=== PATIENT | male | born 1950 | race Caucasian/White ===

== ENCOUNTER 2021-06-29 15:13 | Emergency (ER) | payer MEDICARE, OTHER ==
[2021-06-29 17:13] LABS: HEMOGLOBIN 14.7 gm/dl (14.0-17.5); RED BLOOD COUNT 4.87 M/UL (4.20-5.50); WHITE BLOOD COUNT 14.2 K/UL (4.5-11.0)
[2021-06-29 17:43] LABS: BUN/CREATININE RATIO 26 (0-10)
[2021-06-29] MEDS ORDERED: INDOMETHACIN50 MG PO (19:03)
[2021-06-29] MEDS ORDERED: DOXYCYCLINE HY100 MG PO (19:05)
== END 2021-06-29 19:16 | disposition home or self-care (01) ==
LOC: ER1 15:13
PROVIDERS: Physician Assistant
DX: S59.901A Unspecified injury of right elbow, initial encounter (principal); S69.91XA Unspecified injury of right wrist, hand and finger(s), initial encounter; S59.911A Unspecified injury of right forearm, initial encounter; I10 Essential (primary) hypertension; E11.9 Type 2 diabetes mellitus without complications; Z79.84 Long term (current) use of oral hypoglycemic drugs; Z79.899 Other long term (current) drug therapy; X58.XXXA Exposure to other specified factors, initial encounter
CPT/HCPCS: 71045; 73070; 73100; 73130; 80053; 83605; 85025; 85610; 85652; 93971; 99284